=== PATIENT | female | born 1995 | race Caucasian/White ===

== ENCOUNTER → 2016-04-26 | Outpatient (CLI) | payer OTHER ==
--- NOTE | 2016-04-26 15:23 | DIAGNOSTIC IMAGING REPORT ---
HEAD CT NONCONTRAST CT DOSE: 537.48 mGy.cm HISTORY: Trauma change in mental status TECHNIQUE: Multiaxial CT images of the head were performed without the use of intravenous contrast. Comparison: None. Findings: The paranasal sinuses and mastoid air cells are clear. The calvarium and skull base are intact. The ventricles and sulci are within normal limits. There is no mass, hematoma, midline shift, or acute infarct. Impression: No acute intracranial abnormality. Electronically signed by: Tino Fowler M.D. 04/26/2016 3:21 PM Dictated Date/Time: 04/26/2016 3:21 PM
== END | disposition home or self-care (01) ==
LOC: C.CTS 15:04
PROVIDERS: ATTEND Pediatrics
DX: S06.0X0A Concussion without loss of consciousness, initial encounter (principal); X58.XXXA Exposure to other specified factors, initial encounter

== ENCOUNTER 2016-06-13 18:49 | Emergency (ER) | payer OTHER ==
[~2016-06-13] VITALS: Ht 167.6 cm; Wt 60.7 kg
[2016-06-13 18:58] VITALS: TEMP 36.9; Ht 167.6 cm; Wt 60.7 kg
--- NOTE | 2016-06-13 21:05 | EMERGENCY ROOM VISIT NOTE ---
History Report prepared by Esvin: Ty Monk Under the Supervision of: Dr. Ariel Lakhani M.D. First contact with patient: 20:32 Chief Complaint: REFERRED BY DOCTOR Stated Complaint: REFERRED BY [facility] History of Present Illness The patient is a 21 year old female who presents to the Emergency Room with complaints of constant worsening vaginal bleeding for the past six days. The patient states that on May 19 she has a sexual encounter, and May 20 she took Plan B since she is not on control. She states that everything was okay, however she missed her period which usually is very regular on the of the month. She states that she took tests, and they all came back positive, however after going to a clinic they did not find anything on ultrasound. She states that she has been having spotting constantly, and it has increased in the past day, and she states that she is using a tampon. She additionally states that she is having some abdominal cramping, however it is less than her usual menstrual cramps. She states that she feels like she has a yeast infection, however there is no pain with urination. She additionally states that she was nauseous two days ago, and her breasts feel tender. The patient states that she followed up with [facility], and they told her to come to the ED for evaluation for a miscarriage or an ectopic . The patient denies any previous pregnancies or other medical problems. She additionally states that she has been eating and drinking fine. Source of History: patient Onset: six days ago Position: other (vagina) Quality: other (bleeding) Timing: constant, worsening Associated Symptoms: + abdominal pain, + nausea, No urinary symptoms Note: Associated symptoms: Breast tenderness Review of Systems See HPI for pertinent positives & negatives. A total of 10 systems reviewed and were otherwise negative. Past Medical & Surgical Medical Problems: (1) No significant medical problems Social History Smoking Status: Never Smoker Marital Status: single Housing Status: lives with roommate Occupation Status: [employer] student Current/Historical Medications No Active Prescriptions or Reported Meds Allergies Coded Allergies: No Known Allergies (Unverified , 06/13/16) Physical Exam Vital Signs Date Time Temp Pulse Resp B/P Pulse Ox O2 Delivery O2 Flow Rate FiO2 06/13/16 23:35 87 20 124/73 96 06/13/16 21:32 80 16 130/68 99 Room Air 06/13/16 18:58 36.9 80 18 128/84 98 Room Air Physical Exam GENERAL: Patient is in no acute distress. HEENT: No acute trauma, normocephalic atraumatic, mucous membranes moist, no nasal congestion, no scleral icterus. NECK: No stridor, no adenopathy, no meningismus, trachea is midline. LUNGS: Clear to auscultation bilaterally, no wheeze, no rhonchi, breath sounds equal. HEART: Without murmurs gallops or rubs, regular rate and rhythm. ABDOMEN: Soft, nontender, bowel sounds positive, no hernias, no peritonitis. EXTREMITIES: No cyanosis or edema, full range of motion of all the joints without pain or difficulty, no signs for acute trauma. VAGINAL: No external bleeding noted. Speculum exam reveals a closed cervix with menstrual appearing blood in the vaginal vault. No cervicitis. NEUROLOGIC: Oriented x 3, no acute motor or sensory deficits, no focal weakness. SKIN: No rash, no jaundice, no diaphoresis. Medical Decision & Procedures ER Provider Diagnostic Interpretation: Radiology results and stated below per my review and radiologist interpretation: ULTRASOUND OF THE PELVIS CLINICAL HISTORY: Vaginal bleeding. Unknown status. COMPARISON STUDY: No priors. TECHNIQUE: Real-time, grayscale, and color flow sonography of the pelvis is performed both transabdominally and endovaginally. Images are reviewed in the transverse and longitudinal planes. FINDINGS: Uterus: The uterus is normal in size and echotexture, measuring 6.8 x 3.3 x 4.9 cm. Endometrium: The endometrium is normal in appearance, and the endometrial stripe is normal in thickness measuring up to 0.4 cm. Ovaries: The ovaries are normal in size and morphology. The right ovary measures 2.3 x 1.0 x 1.4 cm and the left ovary measures 3.3 x 1.5 x 1.9 cm. Small follicles are noted. Normal Doppler waveforms are shown within both ovaries. Pelvis: There is no free fluid in the cul-de-sac. No concerning adnexal lesion is seen. IMPRESSION: 1. No intrauterine gestation is identified. This could simply reflect an intrauterine gestation that is too small to visualize or a missed . Although there is no concerning adnexal lesion identified, in the setting of a positive test without a confirmed intrauterine gestation ectopic would be impossible to exclude. Close clinical, laboratory, and sonographic follow-up is recommended. 2. The ovaries are normal in appearance. Electronically signed by: Ariel Rubalcava M.D. 06/13/2016 10:50 PM Dictated Date/Time: 06/13/2016 10:49 PM ULTRASOUND OF THE PELVIS CLINICAL HISTORY: Vaginal bleeding. Unknown status. COMPARISON STUDY: No priors. TECHNIQUE: Real-time, grayscale, and color flow sonography of the pelvis is performed both transabdominally and endovaginally. Images are reviewed in the transverse and longitudinal planes. FINDINGS: Uterus: The uterus is normal in size and echotexture, measuring 6.8 x 3.3 x 4.9 cm. Endometrium: The endometrium is normal in appearance, and the endometrial stripe is normal in thickness measuring up to 0.4 cm. Ovaries: The ovaries are normal in size and morphology. The right ovary measures 2.3 x 1.0 x 1.4 cm and the left ovary measures 3.3 x 1.5 x 1.9 cm. Small follicles are noted. Normal Doppler waveforms are shown within both ovaries. Pelvis: There is no free fluid in the cul-de-sac. No concerning adnexal lesion is seen. IMPRESSION: 1. No intrauterine gestation is identified. This could simply reflect an intrauterine gestation that is too small to visualize or a missed . Although there is no concerning adnexal lesion identified, in the setting of a positive test without a confirmed intrauterine gestation ectopic would be impossible to exclude. Close clinical, laboratory, and sonographic follow-up is recommended. 2. The ovaries are normal in appearance. Electronically signed by: Ariel Rubalcava M.D. 06/13/2016 10:50 PM Dictated Date/Time: 06/13/2016 10:49 PM Laboratory Results 06/13/16 21:25 06/13/16 21:25 Test 06/13/16 21:25 06/13/16 21:30 Red Blood Count 4.23 M/uL (4.2-5.4) Mean Corpuscular Volume 90.8 fL (80-100) Mean Corpuscular Hemoglobin 31.4 pg (25-34) Mean Corpuscular Hemoglobin Concent 34.6 g/dl (32-36) RDW Standard Deviation 40.3 fL (36.4-46.3) RDW Coefficient of Variation 12.1 % (11.5-14.5) Mean Platelet Volume 9.5 fL (7.4-10.4) Anion Gap 7.0 mmol/L (3-11) Est Creatinine Clear Calc Drug Dose 75.7 ml/min Estimated GFR () 83.1 Estimated GFR (Non- 71.7 BUN/Creatinine Ratio 9.7 (10-20) Calcium Level 9.4 mg/dl (8.5-10.1) Human Chorionic Gonadotropin, Quant 25 mIU/mL Urine Color YELLOW Urine Appearance CLOUDY (CLEAR) Urine pH 8.0 (4.5-7.5) Urine Specific Viola 1.015 (1.000-1.030) Urine Protein NEG (NEG) Urine Glucose (UA) NEG (NEG) Urine Ketones NEG (NEG) Urine Occult Blood NEG (NEG) Urine Nitrite NEG (NEG) Urine Bilirubin NEG (NEG) Urine Urobilinogen NEG (NEG) Urine Leukocyte Esterase NEG (NEG) Urine WBC (Auto) 1-5 /hpf (0-5) Urine RBC (Auto) 0-4 /hpf (0-4) Urine Hyaline Casts (Auto) 0 /lpf (0-5) Urine Epithelial Cells (Auto) 5-10 /lpf (0-5) Urine Bacteria (Auto) NEG (NEG) Laboratory results reviewed by me. ED Course 2031: The patient was evaluated in room A9. A complete history and physical exam was performed. 2257: I reevaluated the patient, and she was doing fine. 2314: I performed the vaginal exam on the patient. 2321: I discussed the patient's case with Dr. Cali, CLIENT CARE MANAGER, and he will see her for a follow up this week. 2324: Reevaluated the patient. Discussed results and discharge instructions: She verbalized understanding and agreement. The patient is ready for discharge. Medical Decision The patient is a 21 year old female who presents to the ED with complaints of vaginal bleeding. Differential diagnoses considered include early , ectopic , miscarriage, anemia, electrolyte imbalance, blighted ovum, retained products of conception. There is no leukocytosis or concerning anemia. No significant electrolyte abnormality or kidney failure. Blood type is O+, no RhoGAM required. testing is positive, the quantitative B-hCG is quite low. Urinalysis does not show infection. Pelvic ultrasound shows no ovarian cysts, no evidence for intrauterine or ectopic . On exam, the patient had menstrual appearing blood in the vaginal vault, cervix was closed. She was not toxic or febrile, she was not in significant distress. The patient has done well in the emergency room. She has had minimal vaginal bleeding. I discussed her case with the on-call OB doctor. The patient is being discharged with outpatient follow-up. At this point, it appears that she has suffered a miscarriage, further follow-up as an outpatient is indicated. The patient should return for fever, worsening bleeding or severe pain. Consults Time Called: 2316 Consulting Physician: Dr. Cali Returned Call: 2320 I discussed the patient's case with Dr. Cali, CLIENT CARE MANAGER, and he will see her for a follow up this week. Impression Primary Impression: Vaginal bleeding Additional Impression: Scribe Attestation The scribe's documentation has been prepared under my direction and personally reviewed by me in its entirety. I confirm that the note above accurately reflects all work, treatment, procedures, and medical decision making performed by me. Departure Information Dispostion Home / Self-Care Prescriptions No Active Prescriptions or Reported Meds Referrals [facility] (PCP) Forms HOME CARE DOCUMENTATION FORM, IMPORTANT VISIT INFORMATION Patient Instructions My [facility] Additional Instructions treat this as a period for now call ob in the am tomorrow for an appt return for worsening symptoms or fever ultrasound was ok today Problem Qualifiers
[2016-06-13 21:39] LABS: HEMATOCRIT 38.4 % (37-47); MEAN CELL VOLUME 90.8 fL (80-100); MEAN CORPUSCULAR HEMOGLOBIN 31.4 pg (25-34); MEAN CORPUSCULAR HGB CONC 34.6 g/dl (32-36); MEAN PLATELET VOLUME 9.5 fL (7.4-10.4); PLATELET COUNT 294 K/uL (130-400); RED BLOOD COUNT 4.23 M/uL (4.2-5.4); WHITE BLOOD COUNT 6.86 K/uL (4.8-10.8)
[2016-06-13 21:42] LABS: URINE APPEARANCE CLOUDY (CLEAR); URINE BILIRUBIN NEG (NEG); URINE COLOR YELLOW; URINE NITRITE NEG (NEG); URINE SPECIFIC GRAVITY 1.015 (1.000-1.030); UROBILINOGEN NEG (NEG); ZZUR CULT IF INDIC CLEAN CATCH NO
[2016-06-13 21:43] LABS: MANUAL MICROSCOPIC REQUIRED? NO; REVIEW REQ? NO
[2016-06-13 21:56] LABS: BUN/CREATININE RATIO 9.7 (10-20); CALCIUM 9.4 mg/dl (8.5-10.1); CREATININE 1.1 mg/dl (0.60-1.20); POTASSIUM 3.8 mmol/L (3.5-5.1)
--- NOTE | 2016-06-13 22:52 | DIAGNOSTIC IMAGING REPORT ---
ULTRASOUND OF THE PELVIS CLINICAL HISTORY: Vaginal bleeding. Unknown status. COMPARISON STUDY: No priors. TECHNIQUE: Real-time, grayscale, and color flow sonography of the pelvis is performed both transabdominally and endovaginally. Images are reviewed in the transverse and longitudinal planes. FINDINGS: Uterus: The uterus is normal in size and echotexture, measuring 6.8 x 3.3 x 4.9 cm. Endometrium: The endometrium is normal in appearance, and the endometrial stripe is normal in thickness measuring up to 0.4 cm. Ovaries: The ovaries are normal in size and morphology. The right ovary measures 2.3 x 1.0 x 1.4 cm and the left ovary measures 3.3 x 1.5 x 1.9 cm. Small follicles are noted. Normal Doppler waveforms are shown within both ovaries. Pelvis: There is no free fluid in the cul-de-sac. No concerning adnexal lesion is seen. IMPRESSION: 1. No intrauterine gestation is identified. This could simply reflect an intrauterine gestation that is too small to visualize or a missed . Although there is no concerning adnexal lesion identified, in the setting of a positive test without a confirmed intrauterine gestation ectopic would be impossible to exclude. Close clinical, laboratory, and sonographic follow-up is recommended. 2. The ovaries are normal in appearance. Electronically signed by: Ariel Rubalcava M.D. 06/13/2016 10:50 PM Dictated Date/Time: 06/13/2016 10:49 PM
[2016-06-13 23:35] VITALS: BP 124/73; PULSE 87; O2SAT 96
== END 2016-06-13 23:36 | disposition home or self-care (01) ==
LOC: C.EDB 18:52 → C.EDA 23:36
DX: N93.9 Abnormal uterine and vaginal bleeding, unspecified (principal); Z33.1 Pregnant state, incidental